=== PATIENT | female | born 1990 | race Hispanic/Latino ===

== ENCOUNTER 2018-11-13 19:50 | Emergency (ER) | payer BC, OTHER, SELFPAY ==
--- NOTE | 2018-11-13 20:46 | RAD REPORT ---
EXAM DESCRIPTION: RAD - Hand Left 3 View - 11/13/2018 8:38 pm CLINICAL HISTORY: PAIN Fall, wrist pain and swelling COMPARISON: No comparisons FINDINGS: No acute fracture or dislocation seen.
--- NOTE | 2018-11-13 20:47 | EDPHYS ---
Physician Documentation [facility] Name: Tonya Hanson Age: 28 yrs Sex: Female : 1990 Arrival Date: 11/13/2018 Time: 19:51 Bed 27 Private MD: ED Physician Justino Lara HPI: 11/13 20:12 This 28 yrs old Female presents to ER via Ambulatory with complaints of Wrist kb Injury. 20:12 The patient or guardian reports injury, pain, tenderness. The complaints affect the kb left wrist diffusely. Context: resulted from a fall, while intoxicated. Onset: The symptoms/episode began/occurred 2 week(s) ago. Modifying factors: The symptoms are alleviated by nothing, the symptoms are aggravated by movement. Associated signs and symptoms: Pertinent positives: tingling distally, Pertinent negatives: cyanosis distally, decreased sensation distally, fever, nausea, numbness distally, vomiting. The patient has not experienced similar symptoms in the past. The patient has not recently seen a physician. 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 - Social history:: Smoking status: Patient/guardian denies using tobacco. - Ebola Screening: : Patient negative for fever greater than or equal to 101.5 degrees Fahrenheit, and additional compatible Ebola Virus Disease symptoms Patient denies exposure to infectious person Patient denies travel to an Ebola-affected area in the 21 days before illness onset No symptoms or risks identified at this time. ROS: 20:44 Constitutional: Negative for fever, chills, and weight loss, Cardiovascular: Negative kb for chest pain, palpitations, and edema, Respiratory: Negative for shortness of breath, cough, wheezing, and pleuritic chest pain, Abdomen/GI: Negative for abdominal pain, nausea, vomiting, diarrhea, and constipation, Skin: Negative for injury, rash, and discoloration, Neuro: Negative for headache, weakness, numbness, tingling, and seizure. 20:44 MS/extremity: Positive for injury or acute deformity, pain, tenderness, of the left hand. Exam: 20:44 Constitutional: This is a well developed, well nourished patient who is awake, alert, kb and in no acute distress. Head/Face: Normocephalic, atraumatic. Chest/axilla: Normal chest wall appearance and motion. Nontender with no deformity. No lesions are appreciated. Cardiovascular: Regular rate and rhythm with a normal S1 and S2. No gallops, murmurs, or rubs. Normal PMI, no JVD. No pulse deficits. Respiratory: Lungs have equal breath sounds bilaterally, clear to auscultation and percussion. No rales, rhonchi or wheezes noted. No increased work of breathing, no retractions or nasal flaring. Abdomen/GI: Soft, non-tender, with normal bowel sounds. No distension or tympany. No guarding or rebound. No evidence of tenderness throughout. Skin: Warm, dry with normal turgor. Normal color with no rashes, no lesions, and no evidence of cellulitis. MS/ Extremity: Pulses equal, no cyanosis. Neurovascular intact. Full, normal range of motion. Neuro: Awake and alert, GCS 15, oriented to person, place, time, and situation. Cranial nerves II-XII grossly intact. Motor strength 5/5 in all extremities. Sensory grossly intact. Cerebellar exam normal. Normal gait. Vital Signs: 19:55 BP 128 / 88; Pulse 66; Resp 18; Temp 97.1(TE); Pulse Ox 99% on R/A; Weight 65.77 kg; ed1 Height 4 ft. 11 in. (149.86 cm); Pain 7/10; 20:57 BP 122 / 78; Pulse 70; Resp 18; Temp 97.2(O); Pulse Ox 100% on R/A; Pain 2/10; mg2 19:55 Body Mass Index 29.29 (65.77 kg, 149.86 cm) ed1 MDM: 19:59 Patient medically screened. kb 20:44 Data reviewed: vital signs, nurses notes. Data interpreted: Pulse oximetry: on room air kb is 99 %. Interpretation: normal. 20:46 Test interpretation: by ED physician or midlevel provider: plain radiologic studies, kb negative for fracture. Counseling: I had a detailed discussion with the patient and/or guardian regarding: the historical points, exam findings, and any diagnostic results supporting the discharge/admit diagnosis, radiology results, the need for outpatient follow up, a orthopedic surgeon, to return to the emergency department if symptoms worsen or persist or if there are any questions or concerns that arise at home. 11/13 20:02 Order name: Hand Left 3 View XRAY; Complete Time: 20:48 kb Administered Medications: No medications were administered Disposition: 11/14 07:17 Co-signature as Attending Physician, Justino Lara MD I agree with the assessment and christiano plan of care. Disposition: 11/13/18 20:47 Discharged to Home. Impression: Pain in left hand. - Condition is Stable. - Discharge Instructions: Musculoskeletal Pain, Hand Pain. - Prescriptions for Diclofenac Sodium 75 mg Oral Tablet, Delayed Release (E.C.) - take 1 tablet by ORAL route 2 times per day As needed; 30 tablet. - Medication Reconciliation Form, Thank You Letter, Antibiotic Education, Prescription Opioid Use form. - Follow up: Emergency Department; When: As needed; Reason: Worsening of condition. Follow up: Private Physician; When: 2 - 3 days; Reason: Recheck today's complaints, Continuance of care, Re-evaluation by your physician. Signatures: Dispatcher [employer] EDMS Betsey Keith, PEDIATRIC NEUROPSYCHOLOGIST-C PEDIATRIC NEUROPSYCHOLOGIST-Jutsino Edmonds MD MD cha Riggs, Erika, RN RN ed1 Clint Massey RN RN mg2 Corrections: (The following items were deleted from the chart) 11/13 20:59 20:47 11/13/2018 20:47 Discharged to Home. Impression: Pain in left hand. Condition is mg2 Stable. Forms are Medication Reconciliation Form, Thank You Letter, Antibiotic Education, Prescription Opioid Use. Follow up: Emergency Department; When: As needed; Reason: Worsening of condition. Follow up: Private Physician; When: 2 - 3 days; Reason: Recheck today's complaints, Continuance of care, Re-evaluation by your physician. kb
--- NOTE | 2018-11-13 20:47 | ER ---
Nurse's Notes [facility] Name: Tonya Hanson Age: 28 yrs Sex: Female : 1990 Arrival Date: 11/13/2018 Time: 19:51 Bed 27 Private MD: Diagnosis: Pain in left hand Presentation: 11/13 19:54 Presenting complaint: Patient states: I was walking and I was drunk and I fell and ed1 landed on my left hand. Now my wrist hurts. Transition of care: patient was not received from another setting of care. Onset of symptoms was November 01, 2018. Risk Assessment: Do you want to hurt yourself or someone else? Patient reports no desire to harm self or others. Initial Sepsis Screen: Does the patient meet any 2 criteria? No. Patient's initial sepsis screen is negative. Does the patient have a suspected source of infection? No. Patient's initial sepsis screen is negative. Care prior to arrival: Medication(s) given: Tylenol. 19:54 Method Of Arrival: Ambulatory ed1 19:54 Acuity: RICK 4 ed1 Triage Assessment: 19:55 General: Appears in no apparent distress. Behavior is calm, cooperative. Pain: ed1 Complains of pain in left wrist Pain currently is 7 out of 10 on a pain scale. at worst was 10 out of 10 on a pain scale. Quality of pain is described as aching, shooting, stabbing. Musculoskeletal: Circulation, motion, and sensation intact. Range of motion: intact in all extremities, Swelling absent Reports numbness in left arm. Injury Description: N/A. 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 - Social history:: Smoking status: Patient/guardian denies using tobacco. - Ebola Screening: : Patient negative for fever greater than or equal to 101.5 degrees Fahrenheit, and additional compatible Ebola Virus Disease symptoms Patient denies exposure to infectious person Patient denies travel to an Ebola-affected area in the 21 days before illness onset No symptoms or risks identified at this time. Screenin:15 Abuse screen: Denies threats or abuse. Denies injuries from another. Nutritional mg2 screening: No deficits noted. Tuberculosis screening: No symptoms or risk factors identified. Fall Risk Fall in past 12 months (25 points). Assessment: 20:16 General: Appears in no apparent distress. comfortable, Behavior is calm, cooperative. mg2 Pain: Complains of pain in left arm and left wrist Pain does not radiate. Neuro: Level of Consciousness is awake, alert, obeys commands, Oriented to person, place, time, situation. Cardiovascular: Capillary refill < 3 seconds Patient's skin is warm and dry. Respiratory: Airway is patent Respiratory effort is even, unlabored, Respiratory pattern is regular, symmetrical. GI: No signs and/or symptoms were reported involving the gastrointestinal system. : No signs and/or symptoms were reported regarding the genitourinary system. EENT: No signs and/or symptoms were reported regarding the EENT system. Derm: Skin is intact, is healthy with good turgor, Skin is pink, warm \T\ dry. normal. Musculoskeletal: Circulation, motion, and sensation intact. Capillary refill < 3 seconds, Reports pain in left arm and left wrist. Vital Signs: 19:55 BP 128 / 88; Pulse 66; Resp 18; Temp 97.1(TE); Pulse Ox 99% on R/A; Weight 65.77 kg; ed1 Height 4 ft. 11 in. (149.86 cm); Pain 7/10; 20:57 BP 122 / 78; Pulse 70; Resp 18; Temp 97.2(O); Pulse Ox 100% on R/A; Pain 2/10; mg2 19:55 Body Mass Index 29.29 (65.77 kg, 149.86 cm) ed1 ED Course: 19:51 Patient arrived in ED. am2 19:55 Triage completed. ed1 19:55 Arm band placed on right wrist. ed1 19:58 [facility]C [facility] kb 19:58 Justino Lara MD is Attending Physician. kb 20:15 Clint Massey RN is Primary Nurse. mg2 20:16 No provider procedures requiring assistance completed. Patient did not have IV access mg2 during this emergency room visit. 20:17 Patient has correct armband on for positive identification. mg2 20:36 Hand Left 3 View XRAY In Process Unspecified. EDMS Administered Medications: No medications were administered Outcome: 20:47 Discharge ordered by . sarah 20:58 Discharged to home ambulatory, with family. mg2 20:58 Condition: stable 20:58 Discharge instructions given to patient, family, Instructed on discharge instructions, follow up and referral plans. medication usage, Demonstrated understanding of instructions, follow-up care, medications, Prescriptions given X 1. 20:59 Patient left the ED. mg2 Signatures: Dispatcher [employer] EDMS Betsey Keith, PRESSURE TANK OPERATOR-C PRESSURE TANK OPERATOR-Margy Rosen RN RN ed1 Iveth Kirkland am2 Clint Massey, RN RN mg2 Corrections: (The following items were deleted from the chart) 20:58 20:57 BP 122 / 78; Pulse 70bpm; Resp 18bpm; Pulse Ox 100% RA; Pain 2/10; mg2 mg2
== END 2018-11-13 20:59 | disposition home or self-care (01) ==
LOC: ER 19:50
DX: M25.542 Pain in joints of left hand (principal); W18.30XA Fall on same level, unspecified, initial encounter; Y93.89 Activity, other specified; Y92.9 Unspecified place or not applicable
CPT/HCPCS: 99283

== ENCOUNTER 2019-03-18 12:02 | Observation (INO) | payer SELFPAY ==
[2019-03-18] MEDS ORDERED: NA CHLORIDE 0.9% 1,000 ML ONE (13:27)
[2019-03-18] MEDS ORDERED: MORPHINE 4 MG/ML SYR ONE ×2 (13:29→17:12)
[2019-03-18] MEDS ORDERED: ONDANSETRON 4 MG/2 ML VIAL ONE (13:29)
[2019-03-18 14:05] LABS: Urine Blood TRACE (NEG); Urine Glucose NEGATIVE (NEG); Urine Protein NEGATIVE (NEG); Urine Specific Gravity 1.015 (1.005-1.030)
[2019-03-18 14:23] LABS: Absolute Lymphocytes (CBC) 2.4 K/uL (0.7-4.9); Basophils % 0.2 % (0-1.3); Hematocrit 40.7 % (36.0-45.0); Lymphocytes % 22.9 % (15.3-44.8); MPV 8.8 fL (7.6-11.3); RBC Red Blood Cell Count 4.51 M/uL (3.86-4.86)
--- NOTE | 2019-03-18 14:47 | RAD REPORT ---
EXAM DESCRIPTION: CT - Abdomen Pelvis W Contrast - 03/18/2019 2:24 pm CLINICAL HISTORY: Abdominal pain COMPARISON: none. TECHNIQUE: Computed axial tomography of the abdomen pelvis was obtained. 100 cc Isovue-300 was admin istered intravenously. Oral contrast was not requested which limits evaluation of bowel. All CT scans are performed using dose optimization technique as appropriate and may include automated exposure control or mA/KV adjustment according to patient size. FINDINGS: Mild fatty liver. Cholecystectomy Spleen, pancreas, adrenal and kidneys appear unremarkable. There is no evidence of diverticulitis. A 4 centimeter low to intermediate density mass within the right adnexa. 3 centimeter loculated fluid collection within the cul-de-sac. IMPRESSION: 4 centimeter low to intermediate density mass within the right adnexa may represent a tu noe-ovarian abscess or hemorrhagic ovarian cyst. 3 centimeter loculated fluid collection is present wi thin the cul-de-sac. It is recommended that the patient have a pelvic ultrasound for further evaluati on
[2019-03-18 15:21] LABS: ALT/SGPT 56 U/L (12-78); AST/SGOT 32 U/L (15-37); Albumin 4.5 g/dL (3.4-5.0); Alkaline Phosphatase 75 U/L (45-117); BUN Blood Urea Nitrogen 12 mg/dL (7-18); Bicarbonate 25 mmol/L (21-32); Bilirubin Direct < 0.1 mg/dL (0-0.2); Bilirubin Total 0.6 mg/dL (0.2-1.0); Glucose Level 86 mg/dL (74-106); Lipase 209 U/L (73-393); Protein, Total 8.2 g/dL (6.4-8.2); Sodium Level 138 mmol/L (136-145)
--- NOTE | 2019-03-18 17:26 | RAD REPORT ---
EXAM DESCRIPTION: US - Transvaginal Study Probe - 03/18/2019 4:13 pm CLINICAL HISTORY: Pelvic pain COMPARISON: None. TECHNIQUE: Endovaginal sonography was performed. FINDINGS: Uterus is normal in size. No myometrial mass identified. Endometrial stripe is 7- 8 mm wit h no endometrial abnormality seen. Left ovary is normal in size with normal blood flow in the ovarian stroma on Doppler evaluation. No l eft adnexal mass. Right ovary is normal size with normal blood flow in the stroma. Adjacent to the right ovary is a 3- 4 centimeter heterogeneous mass. No fallopian tube dilatation. Small amounts of free fluid are presen t in the cul de sac. IMPRESSION: Approximately 3- 4 centimeter heterogeneous right adnexal mass. In a patient this age th is is most likely hemorrhagic exophytic ovarian cyst. No sonographic findings to elevate probability of dermoid or teratoma. Uterus and left ovary show no suspicious findings. No history provided indicates positive . A malignant or aggressive process is not common in a patient this age. Follow-up sonography in 2-3 months could be performed to monitor for involution o f the suspected hemorrhagic process.
[2019-03-18] MEDS ORDERED: KETOROLAC 30 MG/ML INJ ONE (18:09)
--- NOTE | 2019-03-18 18:49 | ER ---
Nurse's Notes [facility] Name: Tonya Hanson Age: 28 yrs Sex: Female : 1990 Arrival Date: 03/18/2019 Time: 12:05 Bed 23 Private MD: Diagnosis: Abdominal and pelvic pain;Right adenexal mass;Intractable abdominal pain Presentation: 03/18 12:12 Presenting complaint: Patient states: Lower abdominal pain and nausea x 2 days. hb Transition of care: patient was not received from another setting of care. Onset of symptoms was March 17, 2019. Risk Assessment: Do you want to hurt yourself or someone else? Patient reports no desire to harm self or others. Initial Sepsis Screen: Does the patient meet any 2 criteria? No. Patient's initial sepsis screen is negative. Does the patient have a suspected source of infection? No. Patient's initial sepsis screen is negative. Care prior to arrival: None. 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 - Social history:: Smoking status: Patient/guardian denies using tobacco. - Ebola Screening: : No symptoms or risks identified at this time. Screenin:40 Abuse screen: Denies threats or abuse. Denies injuries from another. Nutritional iw screening: No deficits noted. Tuberculosis screening: No symptoms or risk factors identified. Fall Risk IV access (20 points). Assessment: 13:40 General: Appears in no apparent distress. Behavior is calm, cooperative. Pain: iw Complains of pain in suprapubic area, right lower quadrant and left lower quadrant Pain radiates to anterior aspect of right lateral abdomen Pain currently is 8 out of 10 on a pain scale. Neuro: Level of Consciousness is awake, alert, obeys commands, Oriented to person, place, time, situation, Moves all extremities. Cardiovascular: Capillary refill < 3 seconds Patient's skin is warm and dry. Respiratory: Respiratory effort is even, unlabored, Respiratory pattern is regular. GI: Abdomen is flat, non-distended, Bowel sounds present X 4 quads. Abd is soft X 4 quads Abdomen is tender to palpation in right lower quadrant and left lower quadrant. Derm: Skin is intact, is healthy with good turgor. Musculoskeletal: Range of motion: intact in all extremities. 17:21 Reassessment: Patient appears in no apparent distress at this time. Patient and/or sg family updated on plan of care and expected duration. Pain level reassessed. Patient is alert, oriented x 3, equal unlabored respirations, skin warm/dry/pink. Patient states symptoms have not improved. 19:02 Reassessment: Patient appears in no apparent distress at this time. Patient and/or ca1 family updated on plan of care and expected duration. Pain level reassessed. Patient is alert, oriented x 3, equal unlabored respirations, skin warm/dry/pink. Awaiting room assignment. 20:01 Reassessment: Patient appears in no apparent distress at this time. Patient and/or ca1 family updated on plan of care and expected duration. Pain level reassessed. Patient is alert, oriented x 3, equal unlabored respirations, skin warm/dry/pink. Vital Signs: 12:14 BP 130 / 60; Pulse 81; Resp 16; Temp 98.6; Pulse Ox 100% on R/A; Weight 68.95 kg; hb Height 4 ft. 11 in. (149.86 cm); Pain 8/10; 13:41 BP 118 / 84; Pulse 69; Resp 16 S; Pulse Ox 99% on R/A; iw 19:22 BP 121 / 79 LA (auto/reg); Pulse 61; Resp 16 S; Pulse Ox 99% on R/A; ca1 12:14 Body Mass Index 30.70 (68.95 kg, 149.86 cm) hb ED Course: 12:05 Patient arrived in ED. mr 12:05 Sandip Hitchcock MD is Attending Physician. kdr 12:13 Triage completed. hb 12:14 Arm band placed on. hb 13:02 Cheryl Hodgson, RN is Primary Nurse. iw 13:18 Initial lab(s) drawn, by pr, sent to lab. Inserted saline lock: 20 gauge in right iw antecubital area, using aseptic technique. Blood collected. 13:37 Primary Nurse role handed off by Cheryl Hodgson, LEON sg 13:37 Rush Moreno, RN is Primary Nurse. sg 14:31 CT Abd/Pelvis - IV Contrast Only In Process Unspecified. EDMS 16:20 US Transvaginal Study (Probe) In Process Unspecified. EDMS 17:21 Awaiting radiology results. sg 18:47 Gilbert Ca MD is Hospitalizing Provider. kdr 19:00 Patient has correct armband on for positive identification. Placed in gown. Bed in low ca1 position. Call light in reach. Side rails up X2. 19:00 Pulse ox on. NIBP on. ca1 19:00 Warm blanket given. ca1 19:57 No provider procedures requiring assistance completed. Patient admitted, IV remains in ca1 place. Administered Medications: 13:38 Drug: morphine 4 mg {Note: RASS:0.} Route: IVP; Site: right antecubital; iw 14:15 Follow up: Response: No adverse reaction; RASS: Restless (+1) sg 13:38 Drug: Zofran 4 mg Route: IVP; Site: right antecubital; iw 14:15 Follow up: Response: No adverse reaction; Nausea is decreased sg 13:38 Drug: NS 0.9% 1000 ml Route: IV; Rate: 1 bolus; Site: right antecubital; iw 14:30 Follow up: Response: No adverse reaction; IV Status: Completed infusion; IV Intake: sg 990ml 17:19 Drug: morphine 4 mg Route: IVP; Site: right antecubital; sg 19:55 Follow up: Response: No adverse reaction; Pain is decreased; RASS: Alert and Calm (0) ca1 18:15 Drug: TORadol 30 mg Route: IVP; Site: right antecubital; rv 20:02 Follow up: Response: No adverse reaction; Pain is decreased ca1 Intake: 14:30 IV: 990ml; Total: 990ml. sg Outcome: 18:48 Decision to Hospitalize by Provider. kdr 19:57 Admitted to L \T\ D, accompanied by latricia, via stretcher, room 279, with chart, Report ca1 called to LEON Harris 19:57 Condition: stable 19:57 Instructed on the need for admit. 20:06 Patient left the ED. ca1 Signatures: Dispatcher [employer] EDMS Rush Moreno, RN RN Sandip Hall MD MD [facility] Sabillon, Isabel mr Gokul, Cheryl, RN RN iw Tatianna Amaya, RN RN hb Estuardo Boles, RN RN rv Ann, Mirian, LEON RN ca1
--- NOTE | 2019-03-18 18:50 | EDPHYS ---
Physician Documentation [facility] Name: Tonya Hanson Age: 28 yrs Sex: Female : 1990 Arrival Date: 03/18/2019 Time: 12:05 Bed 23 Private MD: ED Physician Sandip Hitchcock HPI: 03/18 13:53 This 28 yrs old Female presents to ER via Ambulatory with complaints of kdr Abdominal Pain. 13:53 The patient presents with abdominal pain in the lower abdomen, Began mostly in the kdr right lower quad and now radiates to LLQ and to a minor extent. Onset: The symptoms/episode began/occurred yesterday. The symptoms do not radiate. Associated signs and symptoms: Pertinent positives: diarrhea, nausea, Pertinent negatives:. The symptoms are described as achy, crampy, steady. Modifying factors: The symptoms are alleviated by nothing, remaining still, the symptoms are aggravated by coughing, breathing deeply, movement, touching the area. Severity of pain: At its worst the pain was moderate severe just prior to arrival, in the emergency department the pain has resolved. The patient has not experienced similar symptoms in the past. The patient has not recently seen a physician. 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 - Social history:: Smoking status: Patient/guardian denies using tobacco. - Ebola Screening: : No symptoms or risks identified at this time. ROS: 13:53 Constitutional: Negative for fever, chills, and weight loss, Eyes: Negative for injury, kdr pain, redness, and discharge, Neck: Negative for injury, pain, and swelling, Cardiovascular: Negative for chest pain, palpitations, and edema, Respiratory: Negative for shortness of breath, cough, wheezing, and pleuritic chest pain, : Negative for injury, bleeding, discharge, and swelling, MS/Extremity: Negative for injury and deformity, Skin: Negative for injury, rash, and discoloration, Neuro: Negative for headache, weakness, numbness, tingling, and seizure activity. Psych: Negative for depression, anxiety, suicide ideation, homicidal ideation, and hallucinations, Allergy/Immunology: Negative for hives, rash, and allergies, Endocrine: Negative for neck swelling, polydipsia, polyuria, polyphagia, and marked weight changes, Hematologic/Lymphatic: Negative for swollen nodes, abnormal bleeding, and unusual bruising. 13:53 Abdomen/GI: Positive for nausea, vomiting, diarrhea, Negative for vomiting, diarrhea, abdominal cramps. Exam: 13:53 Constitutional: This is a well developed, well nourished patient who is awake, alert, kdr and in no acute distress. Head/Face: Normocephalic, atraumatic. Eyes: Pupils equal round and reactive to light, extra-ocular motions intact. Lids and lashes normal. Conjunctiva and sclera are non-icteric and not injected. Cornea within normal limits. Periorbital areas with no swelling, redness, or edema. Neck: Trachea midline, no thyromegaly or masses palpated, and no cervical lymphadenopathy. Supple, full range of motion without nuchal rigidity, or vertebral point tenderness. No Meningismus. Chest/axilla: Normal chest wall appearance and motion. Nontender with no deformity. No lesions are appreciated. Cardiovascular: Regular rate and rhythm with a normal S1 and S2. No gallops, murmurs, or rubs. Normal PMI, no JVD. No pulse deficits. Respiratory: Lungs have equal breath sounds bilaterally, clear to auscultation and percussion. No rales, rhonchi or wheezes noted. No increased work of breathing, no retractions or nasal flaring. Back: No spinal tenderness. No costovertebral tenderness. Full range of motion. Skin: Warm, dry with normal turgor. Normal color with no rashes, no lesions, and no evidence of cellulitis. MS/ Extremity: Pulses equal, no cyanosis. Neurovascular intact. Full, normal range of motion. Neuro: Awake and alert, GCS 15, oriented to person, place, time, and situation. Cranial nerves II-XII grossly intact. Motor strength 5/5 in all extremities. Sensory grossly intact. Cerebellar exam normal. Normal gait. Psych: Awake, alert, with orientation to person, place and time. Behavior, mood, and affect are within normal limits. 13:53 Abdomen/GI: Inspection: abdomen appears normal, Bowel sounds: diminished, in all quadrants, Palpation: mild abdominal tenderness, in the suprapubic area, right lower quadrant and left lower quadrant. Vital Signs: 12:14 BP 130 / 60; Pulse 81; Resp 16; Temp 98.6; Pulse Ox 100% on R/A; Weight 68.95 kg; hb Height 4 ft. 11 in. (149.86 cm); Pain 8/10; 13:41 BP 118 / 84; Pulse 69; Resp 16 S; Pulse Ox 99% on R/A; iw 19:22 BP 121 / 79 LA (auto/reg); Pulse 61; Resp 16 S; Pulse Ox 99% on R/A; ca1 12:14 Body Mass Index 30.70 (68.95 kg, 149.86 cm) hb MDM: 13:53 Data reviewed: vital signs, nurses notes, lab test result(s), radiologic studies. kdr 17:57 Counseling: I had a detailed discussion with the patient and/or guardian regarding: the kdr historical points, exam findings, and any diagnostic results supporting the discharge/admit diagnosis, lab results, radiology results. Physician consultation: Gilbert Ca MD was called at 17:57, was contacted at 17:57, regarding consult, patient's condition, would like medications started, Toradol 30 mg IV. If unable to make patient comfortable, will observe overnight.. 18:48 Patient medically screened. [facility] 03/18 13:00 Order name: Basic Metabolic Panel; Complete Time: 16:54 [facility] 03/18 13:00 Order name: CBC with Diff; Complete Time: 15:06 [facility] 03/18 13:00 Order name: Creatinine for Radiology; Complete Time: 14:07 [facility] 03/18 13:00 Order name: Hepatic Function; Complete Time: 16:54 kdr 03/18 13:00 Order name: Lipase; Complete Time: 16:54 kdr 03/18 13:28 Order name: Urine --Ancillary (enter results); Complete Time: 14:07 03/18 13:00 Order name: CT Abd/Pelvis - IV Contrast Only; Complete Time: 15:06 kdr 03/18 13:28 Order name: Urine Dipstick--Ancillary (enter results); Complete Time: 14:07 03/18 15:07 Order name: US Transvaginal Study (Probe); Complete Time: 17:54 kdr 03/18 13:00 Order name: IV Saline Lock; Complete Time: 13:18 kdr 03/18 13:00 Order name: Labs collected and sent; Complete Time: 13:18 kdr 03/18 13:00 Order name: Urine Dipstick-Ancillary (obtain specimen); Complete Time: 13:18 kdr 03/18 13:00 Order name: Urine Test (obtain specimen); Complete Time: 13:18 kdr Administered Medications: 13:38 Drug: morphine 4 mg {Note: RASS:0.} Route: IVP; Site: right antecubital; iw 14:15 Follow up: Response: No adverse reaction; RASS: Restless (+1) sg 13:38 Drug: Zofran 4 mg Route: IVP; Site: right antecubital; iw 14:15 Follow up: Response: No adverse reaction; Nausea is decreased sg 13:38 Drug: NS 0.9% 1000 ml Route: IV; Rate: 1 bolus; Site: right antecubital; iw 14:30 Follow up: Response: No adverse reaction; IV Status: Completed infusion; IV Intake: sg 990ml 17:19 Drug: morphine 4 mg Route: IVP; Site: right antecubital; sg 19:55 Follow up: Response: No adverse reaction; Pain is decreased; RASS: Alert and Calm (0) ca1 18:15 Drug: TORadol 30 mg Route: IVP; Site: right antecubital; rv 20:02 Follow up: Response: No adverse reaction; Pain is decreased ca1 Disposition: 03/18/19 18:48 Hospitalization ordered by Gilbert Ca for Observation. Preliminary diagnosis are Abdominal and pelvic pain, Right adenexal mass, Intractable abdominal pain. - Bed [facility] for [facility]. - Status is Observation. ca1 - Condition is Fair. - Problem is new. - Symptoms have improved. UTI on Admission? 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 Preliminary kdr diagnosis is Abdominal and pelvic pain; Right adenexal mass. Bed requested for [facility]. Status is Observation. Condition is Fair. Problem is new. Symptoms have improved. UTI on Admission? No. kdr 19:48 18:49 03/18/2019 18:48 Hospitalization Ordered by Gilbert Ca MD for Observation. cg Preliminary diagnosis is Abdominal and pelvic pain; Right adenexal mass; Intractable abdominal pain. Bed requested for [facility]. Status is Observation. Condition is Fair. Problem is new. Symptoms have improved. UTI on Admission? No. kdr 20:06 19:48 03/18/2019 18:48 Hospitalization Ordered by Gilbert Ca MD for Observation. ca1 Preliminary diagnosis is Abdominal and pelvic pain; Right adenexal mass; Intractable abdominal pain. Bed requested for [facility]. Status is Observation. Condition is Fair. Problem is new. Symptoms have improved. UTI on Admission? No. cg
[2019-03-18] MEDS ORDERED: KETOROLAC 30 MG/ML INJ IV ONE (20:25)
[2019-03-18] MEDS ORDERED: ZOLPIDEM TARTRATE 10 MG TABLET PO PRN (20:28)
[2019-03-18] MEDS ORDERED: IBUPROFEN 400 MG TAB PO PRN (20:28)
[2019-03-18] MEDS ORDERED: D5LR 1,000 ML IV SCH ×2 (21:00→21:10)
[2019-03-18] MEDS ORDERED: Ringers Lactate 1,000 ML IV SCH (21:00)
[2019-03-18 21:05] VITALS: BMI 30.7
[2019-03-19 00:46] VITALS: O2SAT 99
[2019-03-19 04:48] LABS: Absolute Lymphocytes (CBC) 2.7 K/uL (0.7-4.9); Basophils % 0.2 % (0-1.3); Hematocrit 33.8 % (36.0-45.0); Lymphocytes % 37.3 % (15.3-44.8); MPV 8.2 fL (7.6-11.3); RBC Red Blood Cell Count 3.78 M/uL (3.86-4.86)
[2019-03-19 07:51] LABS: Absolute Lymphocytes (CBC) 2.4 K/uL (0.7-4.9); Basophils % 0.3 % (0-1.3); Lymphocytes % 38.8 % (15.3-44.8); MPV 8.1 fL (7.6-11.3); RBC Red Blood Cell Count 3.86 M/uL (3.86-4.86)
[2019-03-19 08:19] VITALS: BP 103/63; TEMP 99.2
--- NOTE | 2019-03-20 08:38 | PREOPHP ---
Date of Admission: 03/18/2019 This 28-year-old female, 2 children at home, came in the emergency room with complaints of lower abdo kenna and pelvic pain. The patient is not on any control for some time now. She has had Nexpl anon in the past but had it removed. Evaluation in the emergency room showed normal white count. Ul trasound demonstrating a right adnexal mass 3 to 4 cm probably representing a hemorrhagic corpus lute um. Small amount of blood in the pelvis. No other findings on ultrasound or CT scan. Patient was a dmitted for overnight observation. During the night she slept well. She has had no pain medicines s keiry the last Toradol, gave her 30 mg IV. Today this morning, her abdomen is completely soft. Patie nt states she is not in any significant pain. Full discussion with patient and about the opt ions involved. Right now it looks like expectant management would be the most reasonable thing to do . We will ambulate the patient and if she has no symptoms and if her blood count is stable probably dismiss her for followup on an outpatient basis. The hematocrit showed significant drop but I think this is not accurate. Will make sure that the blood this time is drawn from the opposite arm of the IV and if it is stable I think that we can reasonably say that there is no intraperitoneal blood sinc e her belly is so soft this morning. If there is any problems will get another ultrasound. She has no shoulder or neck pain. Family History: Noncontributory. Allergies: NO ALLERGIES. Physical Examination: Vital Signs: All normal, but patient's blood pressures are normal. Her pulse is in the 60 range whic h would mitigate against intraperitoneal bleeding and her abdomen is soft. HEENT: Clear. Pupils equal, round, and reactive to light and accommodation. Conjunctivae well perf used. No oral, lingual, or buccal lesions. Lungs: Heart beat auscultated in emergency room, clear. Abdomen: Soft. Pelvic: Deferred. Extremities: Clear. Essentially, it looks like a hemorrhagic corpus luteum cyst that looks to be sta ble at this point. If it is we will dismiss the patient later today and let her followup on outpatie nt basis and as stated, I have suggested the patient she get on control pills or some other for m of control that would prevent ovulation. She says she does not want another children but admi ts she is doing nothing for control. SCOTT/KULDIP Voice ID: [id number]
== END 2019-03-19 10:00 | disposition home or self-care (01) ==
LOC: ER 12:02 → 2ND-WC 20:18
PROVIDERS: ADMIT Specialist; ATTEND Specialist
DX: R19.00 Intra-abdominal and pelvic swelling, mass and lump, unspecified site (principal)
CPT/HCPCS: 36415; 74177; 76830; 80048; 80076; 81003; 81025; 83690; 85025; 96361; 96374; 96375; 99285; G0378; J2405; J7030; Q9967

== ENCOUNTER 2023-10-06 14:22 | Emergency (ER) | payer OTHER ==
--- OUTSIDE RECORDS SUMMARY | 2023-10-06 14:25 | XMS REPORT | Continuity of Care Document ---
Author Name Unknown Address [address] [facility] [address] [place] [id number] [facility] Address [address] [facility]. [address] [place] [address] Care Team Providers Care Certified Genetic Counselor Name Role Phone KARLA USRESH Attending Clinician Unavailab le GC_GCBZW_Kadiyala_S Attending Clinician UnavailJAYE Ochoa Attending Clinician Unavailable William ESCALATOR INSTALLER-CJaye Attending Clinician [phone] LIZETH ANGELA Attending Clinician Unava ilable LAB90 Attending Clinician Unavailable Lizeth Angela MD Attending Clinician [phone] SHERIE CASTELLON Attending Clinician Unavailable Issac Loving DO Attending Clinician [phone] Sherie Castellon MD Attending Clinician [phone] Doctor Unassigned, [place] Attending Clinician U LUCIA Vizcarra Attending Clinician Unavailable [email or web address]_Kadiyala_S Admitting Clinician Unavaila tarik Payers Payer Name Policy Type Policy Number Effective Date Expirati on Date Source [facility] 2 [id number] 2023 00:00:00 [employer] [id number] 2014 00:00:00 202 00:00:00 Problems Condition Name Condition Details Condition Category Status Onset Date Resolution Date Last Treatment Date Treating Clinician Comments Source Obesity (BMI 30-39.9) Obesity (BMI 30-39.9) Disease Active 03-11 00:00: 00 [facility] Breakthrou gh bleeding on Nexplanon Breakthrou gh bleeding on Nexplanon Disease Active 2014-07 00:00: 00 [facility] Overweight Overweight Disease Active 01-26 00:00: 00 Overview: ICD10 Diagnosis 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 [facility] Nexplanon in place Nexplanon in place Disease Active 01-26 00:00: 00 [facility] Encounter for routine gynecologi lesli examinatio n Encounter for routine gynecologi lesli examinatio n Disease Active 01-26 00:00: 00 Overview: ICD10 Diagnosis 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 [facility] Depression Depression Disease Active 01-02 00:00: 00 [facility] No known active problems No known active problems Disease Marnie Trippold - Externa l Allergies, Adverse Reactions, Alerts Allergy Name Allergy Type Status Severity Reaction(s) Onset Date Inactive Date Treating Clinician Comments Source Diclofen ac Propensi ty to adverse reaction s Active 03-18 00:00: 00 Other reaction( s): Nausea/Vo miting Marnie Gallo - Externa l NO KNOWN ALLERGIE S Drug Class Active [facility] Social History Social Habit Start Date Stop Date Quantity Comments Source History of tobacco use 2007-03-03 00:00:00 Cigarette Smoker [facility] Exposure to SARS-CoV-2 (event) Not sure [facility] Sexual orientation Semaj Gallo - External History of Social function 2022-03-30 00:00:00 2022-03-30 00:00:00 Marnie Gallo - External Tobacco use and exposure 2021-12-29 00:00:00 2021-12-29 00:00:00 Smokeless tobacco non-user Marnie Gallo - External Alcohol intake 2020-03-13 00:00:00 2020-03-13 00:00:00 Current drinker of alcohol (finding) [facility] Tobacco Comment 2020-03-11 00:00:00 2020-03-11 00:00:00 quit about 2 years ago [facility] Alcohol Comment 2020-03-11 00:00:00 2020-03-11 00:00:00 Socially [facility] Sex Assigned At 1990 00:00:00 1990 00:00:00 Nikita Dye Semonsesriram Mark Pleitez Smoking Status Start Date Stop Date Source Never smoked tobacco Marnie Culvermonsesriram - External Former smoker 2020-03-13 00:00:00 2020-03-13 00:00:00 [facility] Light tobacco smoker 2019-09-17 00:00:00 [facility] Medications Ordered Medication Name Filled Medication Name Start Date Stop Date Current Medication? Ordering Clinician Indication Dosage Frequency Signature (SIG) Comments Components Source Amoxicillin -Pot Clavulanate 500-125 MG oral Tablet 2022-07 00:00: 00 Yes [id number] 1{tbl} Take 1 tablet by mouth every 12 hours. Marnie azevedo Dexamethaso ne 6 MG oral Tablet 03-30 00:00: 00 06-10 00:00 :00 No [id number] 6mg Take 1 tablet (6 mg total) by mouth daily (with breakfast) Marnie azevedo fluconazole 150 mg tablet 03-15 00:00: 00 03-16 04:59 :00 No [id number] 150mg Take 1 tablet by mouth once now for 1 dose. [facility] norethindro ne ac-eth estradiol (, ORAL) 03-13 19:29: 14 03-13 00:00 :00 No Take by mouth. [facility] benzonatate (TESSALON PERLES) 100 mg capsule 09-18 00:00: 00 03-13 00:00 :00 No [id number] 200mg Take 2 capsules by mouth 3 (three) times daily as needed for Cough. [facility] norethindro ne ac-eth estradiol (, ORAL) 09-16 18:52: 50 Yes Take by mouth. [facility] No known medications No Un [facility] Immunizations Ordered Immunization Name Filled Immunization Name Date Status Comments Source TDAP 2014-10-04 00:00:00 Completed [facility] TDAP 2014-10-04 00:00:00 Completed [facility] TDAP 2014-10-04 00:00:00 Completed [facility] TDAP 2014-10-04 00:00:00 Completed [facility] TDAP 2014-10-04 00:00:00 Completed [facility] TDAP 2014-10-04 00:00:00 Completed [facility] Tdap- (Boostrix, Adacel) 2014-10-04 00:00:00 Completed Marnie Flores External Influenza Virus Vaccine Quad IM Multi-dose 6+ MO 2014-07-02 00:00:00 Completed [facility] Influenza Virus Vaccine Quad IM Multi-dose 6+ MO 2014-07-02 00:00:00 Completed [facility] Influenza Virus Vaccine Quad IM Multi-dose 6+ MO 2014-07-02 00:00:00 Completed [facility] Influenza Virus Vaccine Quad IM Multi-dose 6+ MO 2014-07-02 00:00:00 Completed [facility] Influenza Virus Vaccine Quad IM Multi-dose 6+ MO 2014-07-02 00:00:00 Completed [facility] Influenza Virus Vaccine Quad IM Multi-dose 6+ MO 2014-07-02 00:00:00 Completed [facility] Influenza Virus Vaccine, Split, up to age 3 2014-07-02 00:00:00 Completed Marnie Flores External Varicella (varivax)(chicken pox) 2013-08-28 00:00:00 Completed [facility] Influenza Virus Vaccine (3+ yrs) 2013-08-28 00:00:00 Completed [facility] Varicella (varivax)(chicken pox) 2013-08-28 00:00:00 Completed [facility] Influenza Virus Vaccine (3+ yrs) 2013-08-28 00:00:00 Completed [facility] Varicella (varivax)(chicken pox) 2013-08-28 00:00:00 Completed [facility] Influenza Virus Vaccine (3+ yrs) 2013-08-28 00:00:00 Completed [facility] Varicella (varivax)(chicken pox) 2013-08-28 00:00:00 Completed [facility] Influenza Virus Vaccine (3+ yrs) 2013-08-28 00:00:00 Completed [facility] Varicella (varivax)(chicken pox) 2013-08-28 00:00:00 Completed [facility] Influenza Virus Vaccine (3+ yrs) 2013-08-28 00:00:00 Completed [facility] Varicella (varivax)(chicken pox) 2013-08-28 00:00:00 Completed [facility] Influenza Virus Vaccine (3+ yrs) 2013-08-28 00:00:00 Completed [facility] Influenza, Seasonal, Injectable 2013-08-28 00:00:00 Completed Marnie Seybold - External Varicella Vaccine 2013-08-28 00:00:00 Completed Marnie Seybold - External TDAP 2013-08-24 00:00:00 Completed [facility] Rubella 2013-08-24 00:00:00 Completed [facility] TDAP 2013-08-24 00:00:00 Completed [facility] Rubella 2013-08-24 00:00:00 Completed [facility] TDAP 2013-08-24 00:00:00 Completed [facility] Rubella 2013-08-24 00:00:00 Completed [facility] TDAP 2013-08-24 00:00:00 Completed [facility] Rubella 2013-08-24 00:00:00 Completed [facility] TDAP 2013-08-24 00:00:00 Completed [facility] Rubella 2013-08-24 00:00:00 Completed [facility] TDAP 2013-08-24 00:00:00 Completed [facility] Rubella 2013-08-24 00:00:00 Completed [facility] Rubella 2013-08-24 00:00:00 Completed Marnie Seybold - External Tdap- (Boostrix, Adacel) 2013-08-24 00:00:00 Completed Marnie Gallo - External Influenza, Seasonal, Injectable Unknown Completed Marnie Culverybsriram - External Influenza Virus Vaccine, Split, up to age 3 Unknown Completed Marnie Culverybsriram - External Rubella Unknown Completed Marnie reeves - External Tdap- (Boostrix, Adacel) Unknown Completed Marnie Culverybold - External Tdap- (Boostrix, Adacel) Unknown Completed Marnie Seybold - External Varicella Vaccine Unknown Completed Steven fuchs Seybold - External Vital Signs Vital Name Observation Time Observation Value Comments S ource Systolic blood pressure 2023-06-10 22:02:00 110 mm[Hg] Marnie Seybo ld - External Diastolic blood pressure 2023-06-10 22:02:00 68 mm[Hg] Marnie Seybo ld - External Heart rate 2023-06-10 22:02:00 84 /min Jose Raulse y Seybold - External Body temperature 2023-06-10 22:02:00 36.61 Theresa Marnie Seybold - External Respiratory rate 2023-06-10 22:02:00 16 /min Marnie Seybold - External Body height 2023-06-10 22:02:00 149.9 cm Becky ey Seybold - External Body weight 2023-06-10 22:02:00 69.4 kg Becky ey Seybold - External BMI 2023-06-10 22:02:00 30.90 kg/m2 Becky ey Seybold - External Oxygen saturation in Arterial blood by Pulse oximetry 2023-06-10 22:02:00 98 /min Marnie Culverybo ld - External Systolic blood pressure 2022-03-30 18:00:00 114 mm[Hg] Marnie Seybo ld - External Diastolic blood pressure 2022-03-30 18:00:00 76 mm[Hg] Marnie Culverybo ld - External Heart rate 2022-03-30 18:00:00 87 /min Jose Raulse y Seybold - External Body temperature 2022-03-30 18:00:00 36.94 Theresa Marnie Seybold - External Respiratory rate 2022-03-30 18:00:00 14 /min Marnie Seybold - External Body height 2022-03-30 18:00:00 149.9 cm Becky ey Seybold - External Body weight 2022-03-30 18:00:00 68.947 kg Becky ey Seybold - External BMI 2022-03-30 18:00:00 30.70 kg/m2 Becky ey Seybold - External Oxygen saturation in Arterial blood by Pulse oximetry 2022-03-30 18:00:00 99 /min Marnie Culverybo ld - External Systolic blood pressure 2020-03-11 20:34:00 132 mm[Hg] [facility] Diastolic blood pressure 2020-03-11 20:34:00 91 mm[Hg] [facility] Heart rate 2020-03-11 20:34:00 89 /min [facility] Body temperature 2020-03-11 20:34:00 36.72 Theresa [facility] Respiratory rate 2020-03-11 20:34:00 16 /min [facility] Body height 2020-03-11 20:34:00 149.9 cm [facility] Body weight 2020-03-11 20:34:00 72.394 kg [facility] BMI 2020-03-11 20:34:00 32.24 kg/m2 [facility] Procedures Procedure Date / Time Performed Performing Clinicia n Source LS RAPID STREP ASSAY-LAB TEST 2023-06-10 22:22:00 Karla Suresh - External URINE CULTURE 2020-03-11 21:34:00 Adum, Sherie Hillman [facility] GALV ONLY - VAGINAL PATHOGENS BY NUCLEIC ACID TESTING 2020-03-11 21:34:00 AdumSherie [facility] PAP SMEAR-LIQUID BASED-CP 2020-03-11 21:34:00 AdumSherie [facility] POCT URINALYSIS W/O SPECIFIC GRAVITY 2020-03-11 20:36:00 AdumSherie [facility] ASSIGNMENT OF BENEFITS 2020-03-11 20:15:21 Docto r Unassigned, [place] [facility] Encounters Start Date/Time End Date/Time Encounter Type Admission Type Attending [facility] Care Facility Care Department Encounter ID Source 2023-06-13 00:00:00 2023-06-13 00:00:00 Outpatient KARLA SURESH [id number] M[facility]ie [facility] 2023-06-10 16:00:00 2023-06-10 16:00:00 Outpatient KARLA SURESH [id number] Marnie dimas 2023-04-26 00:00:00 2023-04-26 00:00:00 Outpatient GC_GCBZW_Ka dimichaela_S [facility] [id number] [facility] 2022-03-30 13:00:00 2022-03-30 13:00:00 Outpatient JAYE THOMAS [facility]IE [id number] [facility] 2022-03-09 16:30:00 2022-03-09 17:00:00 Office Visit Jaye Thomas [id number] [id number] Marnie [facility] 2022-01-16 00:00:00 2022-01-16 00:00:00 Outpatient AMRITA ANGELAAN MARNIE DYE [id number] Marnie [facility] 2022-01-04 00:00:00 2022-01-04 00:00:00 Outpatient LIZETH ANGELA [id number] M[facility] 2021-12-29 15:30:00 2021-12-29 15:30:00 Outpatient LAB90 MARNIE DYE [id number] [facility] 2021-12-29 14:45:00 2021-12-29 15:15:00 Office Visit Hilario Lizeth [facility] 1..114 [id number] [id number] Marnie [facility] 2021-03-15 09:00:00 2021-03-15 09:00:00 Outpatient SHERIE RODRIGUEZ [facility] [id number] [facility] 2020-09-20 00:00:00 2020-09-20 00:00:00 Patient Outreach Issac Loving [facility] .114 [id number] [id number] [facility] 2020-03-15 00:00:00 2020-03-15 00:00:00 Case Management Sherie Castellon [facility] 1..114 [id number] [id number] [facility] 2020-03-11 15:15:46 2020-03-13 14:58:14 Office Visit Sherie Castellon [facility] Jai Howell [facility] [id number] [id number] [id number] [facility] 2020-03-11 15:30:00 2020-03-11 15:30:00 Outpatient R SHERIE CASTELLON [facility] [id number] [facility] 2020-03-11 00:00:00 2020-03-11 00:00:00 Orders Only Doctor Unassigned, [place] [facility] 1..840.114 [id number] [id number] [id number] [facility] 2019-09-17 13:25:00 2019-09-17 13:25:00 Outpatient R ZAYAS LUCIA [facility] [id number] [facility] Results Test Description Test Time Test Comments Results Result Co mments Source [facility] [id number] 13:24:00* Test Item Value Reference Range Interpretation Comme nts URINE CULTURE (test code = 630-4) < 10,000 CFU/mL mixed aerobic organisms - suggests endogenous microbial contamination [facility] [id number] 13:24:00* Test Item Value Reference Range Interpretation Comme nts URINE CULTURE (test code = 630-4) < 10,000 CFU/mL mixed aerobic organisms - suggests endogenous microbial contamination [facility] - VAGINAL PATHOGENS BY NUCLEIC ACID [id number] 20:53:00* Test Item Value Reference Range Interpretation Comme nts Trichomonas vaginalis (test code = 0336029767) Negative Negative Lily species (test code = 2336159364) Positive Negative A Lily glabrata (test code = 58064-1) Negative Negative Bacterial Vaginosis (test code = 88428-5) Negative Negative CHITRA (test code = CHITRA) Reliable results a re dependent on adequate specimen collection. This test detects Trichomonas vaginalis, Lily glabrata, and other Lily species (C. albicans, C. parapsilosis, C. dubliniensis, and C. tropicalis). ?The assay does not differentiate among organisms in the Lily species group. The Bacterial Vaginosis result is determined based on relative amounts of the following target organisms: Lactobacillus (L. gasseri, L. crispatus, and L. jensenii), Gardnerella vaginalis, and Atopobium vaginae. ?A single qualitative result is generated. ?This assay does not report individual organisms. A positive result obtained from a patient after therapeutic treatment cannot be interpreted as indicating the presence of viable organisms. ?For patients on whom a false positive result may have adverse psychosocial impact, retesting is advised. Indeterminate: Unable to generate a valid test result on this specimen. ?Please submit a new specimen for repeat testing if clinically indicated. This testing has not been validated for medico-legal purposes (sexual abuse in ari-pubertal and pre-pubertal children, sexual assault, and legal cases). Results from this testing should be interpreted in conjunction with other laboratory and clinical data available to the clinician. Lab Interpretation (test code = 85477-3) [facility]normal [facility] VAGINAL PATHOGENS BY NUCLEIC ACID [id number] 20:53:00* Test Item Value Reference Range Interpretation Comme nts Trichomonas vaginalis (test code = 7618644513) Negative Negative Lily species (test code = 8899219588) Positive Negative A Lily glabrata (test code = 55302-7) Negative Negative Bacterial Vaginosis (test code = 90882-9) Negative Negative CHITRA (test code = CHITRA) Reliable results a re dependent on adequate specimen collection. This test detects Trichomonas vaginalis, Lily glabrata, and other Lily species (C. albicans, C. parapsilosis, C. dubliniensis, and C. tropicalis). ?The assay does not differentiate among organisms in the Lily species group. The Bacterial Vaginosis result is determined based on relative amounts of the following target organisms: Lactobacillus (L. gasseri, L. crispatus, and L. jensenii), Gardnerella vaginalis, and Atopobium vaginae. ?A single qualitative result is generated. ?This assay does not report individual organisms. A positive result obtained from a patient after therapeutic treatment cannot be interpreted as indicating the presence of viable organisms. ?For patients on whom a false positive result may have adverse psychosocial impact, retesting is advised. Indeterminate: Unable to generate a valid test result on this specimen. ?Please submit a new specimen for repeat testing if clinically indicated. This testing has not been validated for medico-legal purposes (sexual abuse in ari-pubertal and pre-pubertal children, sexual assault, and legal cases). Results from this testing should be interpreted in conjunction with other laboratory and clinical data available to the clinician. Lab Interpretation (test code = 82271-4) [facility]normal [facility] - VAGINAL PATHOGENS BY NUCLEIC ACID [id number] 20:53:00* Test Item Value Reference Range Interpretation Comme nts Trichomonas vaginalis (test code = 4083876856) Negative Negative Lily species (test code = 7976649415) Positive Negative A Lily glabrata (test code = 95000-5) Negative Negative Bacterial Vaginosis (test code = 93573-7) Negative Negative CHITRA (test code = CHITRA) Reliable results a re dependent on adequate specimen collection. This test detects Trichomonas vaginalis, Lily glabrata, and other Lily species (C. albicans, C. parapsilosis, C. dubliniensis, and C. tropicalis). ?The assay does not differentiate among organisms in the Lily species group. The Bacterial Vaginosis result is determined based on relative amounts of the following target organisms: Lactobacillus (L. gasseri, L. crispatus, and L. jensenii), Gardnerella vaginalis, and Atopobium vaginae. ?A single qualitative result is generated. ?This assay does not report individual organisms. A positive result obtained from a patient after therapeutic treatment cannot be interpreted as indicating the presence of viable organisms. ?For patients on whom a false positive result may have adverse psychosocial impact, retesting is advised. Indeterminate: Unable to generate a valid test result on this specimen. ?Please submit a new specimen for repeat testing if clinically indicated. This testing has not been validated for medico-legal purposes (sexual abuse in ari-pubertal and pre-pubertal children, sexual assault, and legal cases). Results from this testing should be interpreted in conjunction with other laboratory and clinical data available to the clinician. Lab Interpretation (test code = 69844-3) [facility]/O SPECIFIC [id number] 20:36:00* Test Item Value Reference Range Interpretation Comme nts POCT PH U (test code = 3254) 5 mg/dl 5-8 POCT U LEUK EST (test code = 3263) neg Negative - Negative POCT U NIT (test code = 3262) neg Negative - Negati ve POCT U PROT (test code = 3259) neg Negative - Negat shante POCT U GLU (test code = 3256) neg Negative - Negati ve POCT U KETONE (test code = 3258) neg Negative - Neg ative POCT U BLD (test code = 3257) trace Negative - Negati ve [facility]/O SPECIFIC [id number] 20:36:00* Test Item Value Reference Range Interpretation Comme nts POCT PH U (test code = 3254) 5 mg/dl 5-8 POCT U LEUK EST (test code = 3263) neg Negative - Negative POCT U NIT (test code = 3262) neg Negative - Negati ve POCT U PROT (test code = 3259) neg Negative - Negat shante POCT U GLU (test code = 3256) neg Negative - Negati ve POCT U KETONE (test code = 3258) neg Negative - Neg ative POCT U BLD (test code = 3257) trace Negative - Negati ve [facility] W/O SPECIFIC [id number] 20:36:00* Test Item Value Reference Range Interpretation Comme nts POCT PH U (test code = 3254) 5 mg/dl 5-8 POCT U LEUK EST (test code = 3263) neg Negative - Negative POCT U NIT (test code = 3262) neg Negative - Negati ve POCT U PROT (test code = 3259) neg Negative - Negat shante POCT U GLU (test code = 3256) neg Negative - Negati ve POCT U KETONE (test code = 3258) neg Negative - Neg ative POCT U BLD (test code = 3257) trace Negative - Negati ve [facility]
[2023-10-06] MEDS ORDERED: HYDROCODONE/APAP 5/325 MG TAB ONE (15:59)
[2023-10-06] MEDS ORDERED: dexAMETHasone 10 MG/ML VIAL ONE (15:59)
[2023-10-06] MEDS ORDERED: DIAZEPAM 5 MG TABLET ONE (16:00)
--- NOTE | 2023-10-06 16:12 | ER ---
Nurse's Notes [facility] Name: Tonya Hanson Age: 33 yrs Sex: Female : 1990 Arrival Date: 10/06/2023 Time: 14:22 Bed 11 Private MD: Diagnosis: Sciatica, left side Presentation: 10/05 14:33 Chief complaint: Patient states: Left lower back pain that radiates to leg, onset 1.5 nj1 hour ago when she was bending over dressing. Coronavirus screen:. Ebola Screen: Patient denies travel to an Ebola-affected area in the 21 days before illness onset. Initial Sepsis Screen: Does the patient meet any 2 criteria? No. Patient's initial sepsis screen is negative. Does the patient have a suspected source of infection? No. Patient's initial sepsis screen is negative. Risk Assessment: Do you want to hurt yourself or someone else? Patient reports no desire to harm self or others. Onset of symptoms was October 06, 2023 at 13:00. 14:33 Method Of Arrival: Wheelchair nj 14:33 Acuity: RICK 3 nj1 Triage Assessment: 14:38 General: Appears in no apparent distress. uncomfortable, Behavior is calm, cooperative, nj1 appropriate for age. Pain: Complains of pain in back Pain radiates to left leg Pain currently is 9 out of 10 on a pain scale. Historical: - Allergies: 14:37 diclofenac sodium (Vomiting); nj1 - PMHx: 14:37 None; nj1 - PSHx: 14:37 Cholecystectomy; Tonsillectomy; Appendectomy; section; section; nj1 - Immunization history:: Client reports receiving the 2nd dose of the Covid vaccine. - Infectious Disease History:: Denies. - Social history:: Smoking status: Reported history of juuling and/or vaping. Screenin:20 [facility] ED Fall Risk Assessment (Adult) Score/Fall Risk Level 0 - 2 = Low Risk. Abuse iw screen: Denies threats or abuse. Denies injuries from another. Nutritional screening: No deficits noted. Tuberculosis screening: No symptoms or risk factors identified. Assessment: 15:00 General: Appears in no apparent distress. Behavior is calm, cooperative. Pain: iw Complains of pain in left low back and left leg and back. Neuro: Level of Consciousness is awake, alert, obeys commands, Oriented to person, place, time, situation. Cardiovascular: Patient's skin is warm and dry. Respiratory: Respiratory effort is even, unlabored. Vital Signs: 14:33 BP 122 / 90; Pulse 100; Resp 17; Temp 96.8(TE); Pulse Ox 97% on R/A; Weight 68.04 kg; nj1 Height 4 ft. 11 in. ; Pain 9/10; 14:33 Body Mass Index 30.30 (68.04 kg, 149.86 cm) nj1 14:33 Pain Scale: Adult [facility] ED Course: 14:24 Patient arrived in ED. mr 14:27 Betsey Keith FNP-C is [facility]. kb 14:27 Justino Lara MD is Attending Physician. kb 14:37 Triage completed. nj1 14:38 Arm band placed on right wrist. nj1 16:19 No provider procedures requiring assistance completed. IV discontinued, intact, iw bleeding controlled, No redness/swelling at site. Pressure dressing applied. 16:21 Cheryl Hodgson, RN is Primary Nurse. iw Administered Medications: 15:35 CANCELLED (Physician Discretion): [id number] mg IM once kb 16:04 Drug: Diazepam PO 5 mg PO once Route: PO; nj1 16:20 Follow up: Response: No adverse reaction iw 16:04 Drug: [place] PO 5 mg-325 mg 1 tabs PO once Route: PO; nj1 16:20 Follow up: Response: No adverse reaction iw 16:09 Drug: Dexamethasone IM 10 mg IM once Route: IM; Site: left deltoid; hb 16:20 Follow up: Response: No adverse reaction iw Medication: 16:00 VIS not applicable for this client. iw Outcome: 16:11 Discharge ordered by . kb 16:20 Discharged to home ambulatory, iw 16:20 Condition: good 16:20 Discharge instructions given to patient, Instructed on discharge instructions, follow up and referral plans. medication usage, Demonstrated understanding of instructions, follow-up care, medications, Prescriptions given X 2, 16:21 Patient left the ED. iw Signatures: Betsey Keith FNP-C [employer]-Ckb Isabel Sabillon, Reg Reg mr Cheryl Hodgson, LEON QUINTERO Tatianna Amaya RN RN Rae Garcia RN RN nj
--- NOTE | 2023-10-06 16:12 | EDPHYS ---
Physician Documentation [facility] Name: Tonya Hanson Age: 33 yrs Sex: Female : 1990 Arrival Date: 10/06/2023 Time: 14:22 Bed 11 Private MD: JANET Physician Justino Lara HPI: 10/05 15:31 This 33 yrs old Female presents to ER via Wheelchair with complaints of Back kb Pain. 15:31 Pt is a 33 year old female who presents for left low back/upper buttock pain that kb started today after bending over to pick something up. Denies numbness, tingling, urinary symptoms. Pain worse with movement. Reports pain radiates down left leg. Historical: - Allergies: 14:37 diclofenac sodium (Vomiting); nj1 - PMHx: 14:37 None; nj1 - PSHx: 14:37 Cholecystectomy; Tonsillectomy; Appendectomy; section; section; nj1 - Immunization history:: Client reports receiving the 2nd dose of the Covid vaccine. - Infectious Disease History:: Denies. - Social history:: Smoking status: Reported history of juuling and/or vaping. ROS: 15:31 Constitutional: As per HPI kb Exam: 15:31 Constitutional: This is a well developed, well nourished patient who is awake, alert, kb and in no acute distress. Head/Face: Normocephalic, atraumatic. ENT: Moist Mucous membranes Cardiovascular: Regular rate Respiratory: Respirations even and unlabored. No increased work of breathing. Talking in full sentences Abdomen/GI: Soft, non-tender. No distention Skin: Warm, dry with normal turgor. Normal color. MS/ Extremity: Pulses equal, no cyanosis. Neurovascular intact. Full, normal range of motion. Neuro: Awake and alert, GCS 15, oriented to person, place, time, and situation. Moves all extremities. Normal gait. 15:31 Back: pain, that is moderate, of the left low back, ROM is painful, normal spinal alignment noted, CVA tenderness, is absent, Vital Signs: 14:33 BP 122 / 90; Pulse 100; Resp 17; Temp 96.8(TE); Pulse Ox 97% on R/A; Weight 68.04 kg; nj1 Height 4 ft. 11 in. ; Pain 9/10; 14:33 Body Mass Index 30.30 (68.04 kg, 149.86 cm) nj1 14:33 Pain Scale: Adult nj1 MDM: 14:27 Patient medically screened. kb 15:33 Differential diagnosis: strain, fracture, sciatica, Herniated disc. Data reviewed: kb vital signs, nurses notes. Counseling: I had a detailed discussion with the patient and/or guardian regarding the historical points, exam findings, and any diagnostic results supporting the discharge/admit diagnosis, the need for outpatient follow up, a family practitioner, to return to the emergency department if symptoms worsen or persist or if there are any questions or concerns that arise at home. 15:33 Test considered but Not performed: X-ray: xray considered but pt had no injury or kb trauma and has no bony tenderness. Administered Medications: 15:35 CANCELLED (Physician Discretion): [id number] mg IM once kb 16:04 Drug: Diazepam PO 5 mg PO once Route: PO; nj1 16:20 Follow up: Response: No adverse reaction iw 16:04 Drug: [place] PO 5 mg-325 mg 1 tabs PO once Route: PO; nj1 16:20 Follow up: Response: No adverse reaction iw 16:09 Drug: Dexamethasone IM 10 mg IM once Route: IM; Site: left deltoid; 16:20 Follow up: Response: No adverse reaction iw Disposition Summary: 10/06/23 16:11 Discharge Ordered Notes: Location: Home kb Condition: Stable kb Diagnosis - Sciatica, left side kb Followup: kb - With: Emergency Department - When: As needed - Reason: Worsening of condition Followup: kb - With: Private Physician - When: 2 - 3 days - Reason: Recheck today's complaints, Continuance of care, Re-evaluation by your physician Discharge Instructions: - Discharge Summary Sheet kb - Sciatica, [id number] kb - Back Exercises, [id number] kb Forms: - Medication Reconciliation Form kb - Thank You Letter kb - Antibiotic Education kb - Prescription Opioid Use kb - Patient Portal Instructions kb - Leadership Thank You Letter kb Prescriptions: - Prednisone 20 mg Oral Tablet - take 1 tablet ORAL route once daily for 5 days; 5 tablet; Refills: 0, Product kb Selection Permitted - orphenadrine citrate 100 mg Oral Tablet Sustained Release - take 1 tablet ORAL route 2 times per day As needed; 20 tablet; Refills: 0, kb Product Selection Permitted Signatures: Betsey Keith FNP-C FNP-Tatianna Trujillo RN RN Rae Garcia RN RN nj1 Cheryl Hodgson RN iw Corrections: (The following items were deleted from the chart) 15:35 14:34 Ketorolac IM 30 mg IM once ordered. kb kb
[2023-10-06 20:58] VITALS: BP 122/90; TEMP 96.8; O2SAT 97
== END 2023-10-06 16:21 | disposition home or self-care (01) ==
LOC: ER 14:22
DX: M54.32 Sciatica, left side (principal); Z91.048 Other nonmedicinal substance allergy status
CPT/HCPCS: 96372; 99284; J1100